=== PATIENT | female | born 1985 | race Hispanic/Latino ===

== ENCOUNTER 2020-12-01 20:52 | Emergency (ER) | payer SELFPAY ==
[2020-12-01] MEDS ORDERED: diphenhydrAMINE 50 MG/ML VIAL ONE (21:06)
[2020-12-01] MEDS ORDERED: Acetaminophen 500 MG TAB ONE (21:06)
[2020-12-01] MEDS ORDERED: Metoclopramide HCl 10 MG/2 ML VIAL ONE (21:06)
== END 2020-12-01 22:25 | disposition home or self-care (01) ==
LOC: ERS 20:52
DX: R51.9 Headache, unspecified (principal)
CPT/HCPCS: 70450; 96365; 96366; 96375; J1200; J2765

== ENCOUNTER 2020-12-07 18:15 | Emergency (ER) | payer SELFPAY | END 2020-12-07 18:29 | disposition home or self-care (01) | LOC: ERS 18:15 | DX: T78.40XA Allergy, unspecified, initial encounter (principal) | CPT/HCPCS: 99281 ==

== ENCOUNTER 2020-12-11 19:42 | Emergency (ER) | payer SELFPAY | END 2020-12-11 20:26 | disposition left against medical advice (07) | LOC: ERS 19:42 | DX: Z53.21 Procedure and treatment not carried out due to patient leaving prior to being seen by health care provider (principal) ==